=== PATIENT | female | born 1980 | race Native Hawaiian/Other Pacific Islander ===

== ENCOUNTER 2023-09-19 15:20 | Emergency (ER) | payer OTHER ==
[~2023-09-19] VITALS: Ht 152.4 cm; Wt 159.7 kg
[2023-09-19 15:27] VITALS: TEMP 99.5
[2023-09-19 16:10] LABS: PLATELET COUNT 256 K/uL (152-353)
[2023-09-19 16:15] LABS: PARTIAL THROMBOPLASTIN TIME 31.8 SECONDS (23.9-36.7)
[2023-09-19 16:22] LABS: POTASSIUM 4.1 mmol/L (3.6-5.2)
[2023-09-19 16:30] VITALS: BP 136/76
== END 2023-09-19 16:45 | disposition home or self-care (01) ==
LOC: ED 15:20
PROVIDERS: Family Medicine
DX: R07.89 Other chest pain (principal); R06.02 Shortness of breath; R42 Dizziness and giddiness; R53.1 Weakness; G47.00 Insomnia, unspecified; R11.2 Nausea with vomiting, unspecified; R53.83 Other fatigue; E11.9 Type 2 diabetes mellitus without complications; I10 Essential (primary) hypertension
CPT/HCPCS: 80053; 84484; 85027; 85379; 85610; 85730; 93005; 99283